=== PATIENT | female | born 1960 | race Caucasian/White ===

== ENCOUNTER 2017-10-12 07:35 | Inpatient (IN) | payer MEDICARE, OTHER ==
[2017-10-12] MEDS: morphine 4 MG/ML VIAL IV ×2 (08:27→12:02)
[2017-10-12] MEDS: ONDANSETRON 4 MG INJ IV ×3 (08:28→13:53)
[2017-10-12] MEDS: SODIUM CHLORIDE 0.9% 1L BAG IV* ×2 (08:28→11:31)
[2017-10-12 09:14] LABS: ADD MAN DIFF? NO
[2017-10-12 09:24] LABS: BASOPHILS % 0.3 % (0.0-2.0); EOSINOPHILS % 0.3 % (0.0-7.0); HEMATOCRIT 37.2 % (37.0-47.0); HEMOGLOBIN 12.5 g/dl (12.0-16.0); LYMPHOCYTES # 0.9 10^3/ul (0.8-2.9); LYMPHOCYTES % 13.2 % (15.0-51.0); MEAN CORPUSCULAR HEMOGLOBIN 31.6 pg (29.0-33.0); MEAN CORPUSCULAR HGB CONC 33.6 g/dl (32.0-37.0); MEAN CORPUSCULAR VOLUME 93.9 fl (82.0-101.0); MEAN PLATELET VOLUME 11.2 fl (7.4-10.4); MONOCYTE # 1.3 10^3/ul (0.3-0.9); MONOCYTES % 18.3 % (0.0-11.0); NEUTROPHIL # 4.8 10^3/ul (1.6-7.5); NEUTROPHILS % 67.6 % (39.0-77.0); PLATELET COUNT 207 10^3/UL (140-415); RED BLOOD COUNT 3.96 10^6/ul (4.20-5.40); RED CELL DISTRIBUTION WIDTH 13.5 % (11.5-14.5)
[2017-10-12 09:37] LABS: INR 1.02; PROTIME 13.5 Sec (11.9-14.9); PT RATIO 1.1
[2017-10-12 09:38] LABS: PARTIAL THROMBOPLASTIN TIME 30.1 Sec (25.0-35.0)
[2017-10-12 09:42] LABS: ALANINE AMINOTRANSFERASE 195 IU/L (13-69); ALBUMIN 3.7 g/dl (3.3-4.9); ALBUMIN/GLOBULIN RATIO 1.32; ALKALINE PHOSPHATASE 77 IU/L (42-121); AMYLASE 179 U/L (11-123); ANION GAP 13 (8-16); BILIRUBIN,INDIRECT 0.4 mg/dl (0-1.1); BILIRUBIN,TOTAL 0.4 mg/dl (0.2-1.3); BLOOD UREA NITROGEN 15 mg/dl (7-20); CARBON DIOXIDE 26 mmol/L (21-31); CHLORIDE 105 mmol/L (97-110); CREATININE 0.99 mg/dl (0.44-1.00); GLUCOSE 130 mg/dl (70-220); LIPASE 21 U/L (23-300); POTASSIUM 3.8 mmol/L (3.5-5.1); SODIUM 140 mmol/L (135-144); TOTAL PROTEIN 6.5 g/dl (6.1-8.1)
[2017-10-12 09:48] LABS: ASPARTATE AMINO TRANSFERASE 782 IU/L (15-46)
[2017-10-12 09:51] LABS: TROPONIN-I 0.015 ng/ml (0.00-0.12)
[2017-10-12] MEDS: ACETAMINOPHEN 500 MG TAB PO (11:43)
[2017-10-12] MEDS: IBUPROFEN 800 MG TAB PO (11:44)
[2017-10-12] MEDS: CEFEPIME 2GM/50 ML (PMX) 50 ML IVPB (11:44)
[2017-10-12] MEDS: VANCOMYCIN 1 GM (PMX) 250 ML IVPB (11:44)
[2017-10-12 11:59] LABS: ADD UMIC YES; UR AMORPHOUS CRYSTAL FEW /HPF (NONE SEEN); UR ASCORBIC ACID NEGATIVE (NEGATIVE); UR BACTERIA FEW /HPF (NONE SEEN); UR BILIRUBIN (Dip) NEGATIVE (NEGATIVE); UR BLOOD (Dip) 3+ mg/dL (NEGATIVE); UR BUDDING YEAST MODERATE /HPF (NONE SEEN); UR CLARITY SLIGHTLY CLOUDY (CLEAR); UR COLOR YELLOW (YELLOW); UR GLUCOSE (Dip) NEGATIVE (NEGATIVE); UR KETONES (Dip) NEGATIVE (NEGATIVE); UR LEUKOCYTE ESTERASE (Dip) NEGATIVE Leu/ul (NEGATIVE); UR NITRITE (Dip) NEGATIVE (NEGATIVE); UR RBC 1 /HPF (0-5); UR TOTAL PROTEIN (Dip) 1+ mg/dl (NEGATIVE); UR UROBILINOGEN (Dip) NEGATIVE (NEGATIVE); UR WBC 2 /HPF (0-5)
[2017-10-12] MEDS: HYDROmorphONE 1 MG/ML SYG IV (13:53)
[2017-10-12 18:09] LABS: LACTIC ACID 0.9 mmol/L (0.5-2.0)
[2017-10-12] MEDS ORDERED: SODIUM CHLORIDE 0.9% 1L BAG IV (19:30)
[2017-10-12] MEDS ORDERED: ZOLPIDEM 5 MG TAB PO (19:30)
[2017-10-12] MEDS ORDERED: NACL 0.9% 3 ML SYG IV ×2 (19:30)
[2017-10-12] MEDS ORDERED: ACETAMINOPHEN 325 MG TAB PO (19:30)
[2017-10-12] MEDS ORDERED: ONDANSETRON 4 MG TAB PO (19:30)
[2017-10-12 20:15] LABS: CREATINE KINASE 25336 IU/L (23-200)
[2017-10-12] MEDS: OXYCODONE/ACETAMINOPHEN (5/325) TAB PO (20:45)
[2017-10-12] MEDS: SOD CHLORIDE 0.9% 1,000 ML IV (20:46)
[2017-10-12] MEDS: GABAPENTIN 400 MG CAP PO (20:46)
[2017-10-12] MEDS: PRAMIPEXOLE 0.25 MG TAB PO (20:47)
[2017-10-12] MEDS: GABAPENTIN 300 MG CAP PO (20:48)
[2017-10-12] MEDS: LISINOPRIL 10 MG TAB PO (21:00)
[2017-10-12] MEDS: ALBUTEROL HFA 8 GM INHALER INH (21:08)
[2017-10-13] MEDS: OXYCODONE/ACETAMINOPHEN (5/325) TAB PO ×4 (04:05→20:42)
[2017-10-13] MEDS: ALBUTEROL HFA 8 GM INHALER INH ×4 (04:10→20:43)
[2017-10-13] MEDS: PANTOPRAZOLE (EC) 40 MG TAB PO (06:06)
[2017-10-13 07:11] LABS: ADD MAN DIFF? NO
[2017-10-13 07:17] LABS: WHITE BLOOD COUNT 6.6 10^3/ul (4.8-10.8)
[2017-10-13 07:17] LABS: BASOPHILS % 0.3 % (0.0-2.0); EOSINOPHILS # 0.1 10^3/ul (0.0-0.5); EOSINOPHILS % 1.2 % (0.0-7.0); HEMATOCRIT 31.8 % (37.0-47.0); HEMOGLOBIN 10.6 g/dl (12.0-16.0); LYMPHOCYTES # 1.3 10^3/ul (0.8-2.9); LYMPHOCYTES % 19.4 % (15.0-51.0); MEAN CORPUSCULAR HEMOGLOBIN 31.4 pg (29.0-33.0); MEAN CORPUSCULAR HGB CONC 33.3 g/dl (32.0-37.0); MEAN CORPUSCULAR VOLUME 94.1 fl (82.0-101.0); MONOCYTE # 1.1 10^3/ul (0.3-0.9); MONOCYTES % 15.9 % (0.0-11.0); NEUTROPHIL # 4.2 10^3/ul (1.6-7.5); NEUTROPHILS % 62.9 % (39.0-77.0); PLATELET COUNT 165 10^3/UL (140-415); RED BLOOD COUNT 3.38 10^6/ul (4.20-5.40); RED CELL DISTRIBUTION WIDTH 13.6 % (11.5-14.5)
[2017-10-13 07:46] LABS: ALANINE AMINOTRANSFERASE 156 IU/L (13-69); ALBUMIN 2.6 g/dl (3.3-4.9); ALBUMIN/GLOBULIN RATIO 0.92; ALKALINE PHOSPHATASE 57 IU/L (42-121); AMYLASE 114 U/L (11-123); ANION GAP 5 (8-16); ASPARTATE AMINO TRANSFERASE 515 IU/L (15-46); BILIRUBIN,INDIRECT 0.3 mg/dl (0-1.1); BILIRUBIN,TOTAL 0.3 mg/dl (0.2-1.3); BLOOD UREA NITROGEN 16 mg/dl (7-20); CALCIUM 7.9 mg/dl (8.4-10.2); CARBON DIOXIDE 28 mmol/L (21-31); CHLORIDE 111 mmol/L (97-110); CREATININE 0.84 mg/dl (0.44-1.00); GLUCOSE 125 mg/dl (70-220); LIPASE 10 U/L (23-300); MAGNESIUM 1.6 mg/dl (1.7-2.5); PHOSPHORUS 3.1 mg/dl (2.5-4.9); POTASSIUM 4.3 mmol/L (3.5-5.1); SODIUM 140 mmol/L (135-144); TOTAL PROTEIN 5.4 g/dl (6.1-8.1)
[2017-10-13 08:29] LABS: TROPONIN-I 0.021 ng/ml (0.00-0.12)
[2017-10-13 08:37] LABS: CK INDEX 0.1; CREATINE KINASE 15277 IU/L (23-200)
[2017-10-13] MEDS ORDERED: PATIENT'S OWN MEDICATION PO (09:00)
[2017-10-13] MEDS: ARIPIPRAZOLE 5 MG TAB PO (09:49)
[2017-10-13] MEDS: GABAPENTIN 300 MG CAP PO ×3 (09:49→20:42)
[2017-10-13] MEDS: CITALOPRAM 20 MG TAB PO (09:49)
[2017-10-13] MEDS: LAMOTRIGINE 100 MG TAB PO (09:49)
[2017-10-13] MEDS: BUPROPION (XL) 150 MG TAB PO (09:50)
[2017-10-13] MEDS: LISINOPRIL 20 MG TAB PO (09:50)
[2017-10-13] MEDS: MAGNESIUM OXIDE 400 MG TAB PO (14:02)
[2017-10-13] MEDS: traMADol 50 MG TAB PO (14:06)
[2017-10-13] MEDS: SOD CHLORIDE 0.9% 1,000 ML IV (15:30)
[2017-10-13] MEDS: PRAMIPEXOLE 0.25 MG TAB PO (20:42)
[2017-10-13] MEDS: traZODone 100 MG TAB PO (20:42)
[2017-10-13] MEDS: INFLUENZA VIRUS VACCINE 0.5 ML SYG IM* (20:44)
[2017-10-14] MEDS: SOD CHLORIDE 0.9% 1,000 ML IV (00:59)
[2017-10-14] MEDS: ALBUTEROL HFA 8 GM INHALER INH ×4 (02:39→20:00)
[2017-10-14] MEDS: PANTOPRAZOLE (EC) 40 MG TAB PO (04:28)
[2017-10-14] MEDS: OXYCODONE/ACETAMINOPHEN (5/325) TAB PO ×3 (04:28→16:52)
[2017-10-14 06:04] LABS: ADD MAN DIFF? NO
[2017-10-14 06:11] LABS: WHITE BLOOD COUNT 6.3 10^3/ul (4.8-10.8)
[2017-10-14 06:11] LABS: BASOPHILS % 0.5 % (0.0-2.0); EOSINOPHILS # 0.1 10^3/ul (0.0-0.5); EOSINOPHILS % 1.6 % (0.0-7.0); HEMATOCRIT 32.4 % (37.0-47.0); HEMOGLOBIN 10.8 g/dl (12.0-16.0); LYMPHOCYTES # 1.2 10^3/ul (0.8-2.9); LYMPHOCYTES % 18.2 % (15.0-51.0); MEAN CORPUSCULAR HEMOGLOBIN 31.1 pg (29.0-33.0); MEAN CORPUSCULAR HGB CONC 33.3 g/dl (32.0-37.0); MEAN CORPUSCULAR VOLUME 93.4 fl (82.0-101.0); MEAN PLATELET VOLUME 10.8 fl (7.4-10.4); MONOCYTE # 0.8 10^3/ul (0.3-0.9); NEUTROPHIL # 4.2 10^3/ul (1.6-7.5); NEUTROPHILS % 66.4 % (39.0-77.0); PLATELET COUNT 170 10^3/UL (140-415); RED BLOOD COUNT 3.47 10^6/ul (4.20-5.40); RED CELL DISTRIBUTION WIDTH 13.6 % (11.5-14.5)
[2017-10-14 07:21] LABS: ALANINE AMINOTRANSFERASE 156 IU/L (13-69); ALBUMIN/GLOBULIN RATIO 1.11; ALKALINE PHOSPHATASE 70 IU/L (42-121); ANION GAP 7 (8-16); ASPARTATE AMINO TRANSFERASE 384 IU/L (15-46); BILIRUBIN,INDIRECT 0.3 mg/dl (0-1.1); BILIRUBIN,TOTAL 0.3 mg/dl (0.2-1.3); BLOOD UREA NITROGEN 9 mg/dl (7-20); CALCIUM 8.1 mg/dl (8.4-10.2); CARBON DIOXIDE 27 mmol/L (21-31); CHLORIDE 110 mmol/L (97-110); CREATININE 0.73 mg/dl (0.44-1.00); GLUCOSE 100 mg/dl (70-220); POTASSIUM 4.3 mmol/L (3.5-5.1); SODIUM 140 mmol/L (135-144); TOTAL PROTEIN 5.7 g/dl (6.1-8.1)
[2017-10-14] MEDS: LAMOTRIGINE 100 MG TAB PO (08:42)
[2017-10-14] MEDS: MAGNESIUM OXIDE 400 MG TAB PO (08:43)
[2017-10-14] MEDS: LISINOPRIL 20 MG TAB PO (08:43)
[2017-10-14] MEDS: GABAPENTIN 300 MG CAP PO ×3 (08:43→20:44)
[2017-10-14] MEDS: BUPROPION (XL) 150 MG TAB PO (08:43)
[2017-10-14] MEDS: CITALOPRAM 20 MG TAB PO (08:44)
[2017-10-14] MEDS: ARIPIPRAZOLE 5 MG TAB PO (08:44)
[2017-10-14] MEDS: traZODone 100 MG TAB PO (20:44)
[2017-10-14] MEDS: PRAMIPEXOLE 0.25 MG TAB PO (20:44)
[2017-10-15] MEDS: OXYCODONE/ACETAMINOPHEN (5/325) TAB PO ×4 (00:59→20:36)
[2017-10-15] MEDS: ALBUTEROL HFA 8 GM INHALER INH ×4 (02:00→20:29)
[2017-10-15] MEDS: PANTOPRAZOLE (EC) 40 MG TAB PO (06:10)
[2017-10-15] MEDS: traMADol 50 MG TAB PO (07:18)
[2017-10-15] MEDS: LISINOPRIL 20 MG TAB PO (07:46)
[2017-10-15] MEDS: GABAPENTIN 300 MG CAP PO ×3 (07:46→20:29)
[2017-10-15] MEDS: MAGNESIUM OXIDE 400 MG TAB PO (07:46)
[2017-10-15] MEDS: BUPROPION (XL) 150 MG TAB PO (07:46)
[2017-10-15] MEDS: ARIPIPRAZOLE 5 MG TAB PO (07:47)
[2017-10-15] MEDS: CITALOPRAM 20 MG TAB PO (07:47)
[2017-10-15] MEDS: SOD CHLORIDE 0.9% 1,000 ML IV (07:47)
[2017-10-15] MEDS: LAMOTRIGINE 100 MG TAB PO (08:10)
[2017-10-15] MEDS: ENOXAPARIN 40 MG/0.4 ML SYG SC (09:01)
[2017-10-15] MEDS: traZODone 100 MG TAB PO (20:29)
[2017-10-15] MEDS: PRAMIPEXOLE 0.25 MG TAB PO (20:29)
[2017-10-16] MEDS: ALBUTEROL HFA 8 GM INHALER INH ×3 (02:55→12:23)
[2017-10-16] MEDS: PANTOPRAZOLE (EC) 40 MG TAB PO (05:14)
[2017-10-16] MEDS: OXYCODONE/ACETAMINOPHEN (5/325) TAB PO (05:15)
[2017-10-16 07:41] LABS: ADD MAN DIFF? NO
[2017-10-16 07:46] LABS: BASOPHILS % 0.5 % (0.0-2.0); EOSINOPHILS # 0.2 10^3/ul (0.0-0.5); EOSINOPHILS % 4.3 % (0.0-7.0); HEMATOCRIT 32.1 % (37.0-47.0); LYMPHOCYTES # 1.2 10^3/ul (0.8-2.9); LYMPHOCYTES % 28.4 % (15.0-51.0); MEAN CORPUSCULAR HEMOGLOBIN 32.1 pg (29.0-33.0); MEAN CORPUSCULAR HGB CONC 34.3 g/dl (32.0-37.0); MEAN CORPUSCULAR VOLUME 93.6 fl (82.0-101.0); MEAN PLATELET VOLUME 10.6 fl (7.4-10.4); MONOCYTE # 0.5 10^3/ul (0.3-0.9); MONOCYTES % 12.5 % (0.0-11.0); NEUTROPHIL # 2.3 10^3/ul (1.6-7.5); NEUTROPHILS % 54.1 % (39.0-77.0); PLATELET COUNT 226 10^3/UL (140-415); RED BLOOD COUNT 3.43 10^6/ul (4.20-5.40); RED CELL DISTRIBUTION WIDTH 13.4 % (11.5-14.5)
[2017-10-16 07:46] LABS: WHITE BLOOD COUNT 4.2 10^3/ul (4.8-10.8)
[2017-10-16 08:12] LABS: PHOSPHORUS 3.5 mg/dl (2.5-4.9)
[2017-10-16 08:12] LABS: MAGNESIUM 1.8 mg/dl (1.7-2.5)
[2017-10-16] MEDS: GABAPENTIN 300 MG CAP PO ×2 (08:17→12:23)
[2017-10-16] MEDS: MAGNESIUM OXIDE 400 MG TAB PO (08:17)
[2017-10-16] MEDS: DOCUSATE SODIUM 100 MG CAP PO (08:17)
[2017-10-16] MEDS: BUPROPION (XL) 150 MG TAB PO (08:17)
[2017-10-16] MEDS: ARIPIPRAZOLE 5 MG TAB PO (08:17)
[2017-10-16] MEDS: LISINOPRIL 20 MG TAB PO (08:18)
[2017-10-16] MEDS: CITALOPRAM 20 MG TAB PO (08:18)
[2017-10-16 09:39] LABS: ALANINE AMINOTRANSFERASE 119 IU/L (13-69); ALBUMIN 2.9 g/dl (3.3-4.9); ALBUMIN/GLOBULIN RATIO 1.07; ALKALINE PHOSPHATASE 58 IU/L (42-121); ANION GAP 6 (8-16); ASPARTATE AMINO TRANSFERASE 175 IU/L (15-46); BILIRUBIN,INDIRECT 0.3 mg/dl (0-1.1); BILIRUBIN,TOTAL 0.3 mg/dl (0.2-1.3); BLOOD UREA NITROGEN 11 mg/dl (7-20); CALCIUM 8.5 mg/dl (8.4-10.2); CARBON DIOXIDE 29 mmol/L (21-31); CHLORIDE 109 mmol/L (97-110); CREATININE 0.73 mg/dl (0.44-1.00); GLUCOSE 94 mg/dl (70-220); POTASSIUM 4.4 mmol/L (3.5-5.1); SODIUM 140 mmol/L (135-144); TOTAL PROTEIN 5.6 g/dl (6.1-8.1)
[2017-10-16] MEDS: LAMOTRIGINE 100 MG TAB PO (10:23)
== END 2017-10-16 13:51 | disposition home or self-care (01) | DRG 914 ==
LOC: E/R 07:35 → MS4 14:22
DX: S76.002A Unspecified injury of muscle, fascia and tendon of left hip, initial encounter (principal); M62.82 Rhabdomyolysis; S09.90XA Unspecified injury of head, initial encounter; S00.03XA Contusion of scalp, initial encounter; S13.9XXA Sprain of joints and ligaments of unspecified parts of neck, initial encounter; I10 Essential (primary) hypertension; M25.552 Pain in left hip; G80.9 Cerebral palsy, unspecified; F32.9 Major depressive disorder, single episode, unspecified; E78.5 Hyperlipidemia, unspecified; R32 Unspecified urinary incontinence; R50.9 Fever, unspecified; W01.0XXA Fall on same level from slipping, tripping and stumbling without subsequent striking against object, initial encounter; Z96.651 Presence of right artificial knee joint; Z98.84 Bariatric surgery status
CPT/HCPCS: 70450; 71045; 72125; 73510; 73560; 80053; 81001; 82150; 82550; 82553; 82962; 83605; 83690; 83735; 84100; 84484; 85025; 85610; 85730; 87040; 87086; 87400; 90686; 93005; 96374; 96375; 97163; 99285-25

== ENCOUNTER 2018-06-26 11:32 | Emergency (ER) | payer MEDICARE, OTHER ==
[2018-06-26] MEDS: OXYCODONE/ACETAMINOPHEN (5/325) TAB PO (12:43)
== END 2018-06-26 14:51 | disposition home or self-care (01) ==
LOC: FTE 11:32
DX: S80.12XA Contusion of left lower leg, initial encounter (principal); S02.2XXA Fracture of nasal bones, initial encounter for closed fracture; I10 Essential (primary) hypertension; J45.909 Unspecified asthma, uncomplicated; E66.9 Obesity, unspecified; V00.811A Fall from moving wheelchair (powered), initial encounter; Y92.410 Unspecified street and highway as the place of occurrence of the external cause; Z96.653 Presence of artificial knee joint, bilateral
CPT/HCPCS: 70450; 70486; 73590; 99284-25

== ENCOUNTER 2019-03-26 13:55 | Emergency (ER) | payer MEDICARE, OTHER ==
[2019-03-26 15:10] LABS: ADD MAN DIFF? NO
[2019-03-26 15:12] LABS: BASOPHILS % 0.4 % (0.0-2.0); EOSINOPHILS # 0.4 10^3/ul (0.0-0.5); EOSINOPHILS % 3.5 % (0.0-7.0); HEMATOCRIT 35.9 % (37.0-47.0); LYMPHOCYTES # 1.8 10^3/ul (0.8-2.9); LYMPHOCYTES % 17.3 % (15.0-51.0); MEAN CORPUSCULAR HEMOGLOBIN 32.2 pg (29.0-33.0); MEAN CORPUSCULAR HGB CONC 33.4 g/dl (32.0-37.0); MEAN CORPUSCULAR VOLUME 96.2 fl (82.0-101.0); MEAN PLATELET VOLUME 9.8 fl (7.4-10.4); MONOCYTE # 0.8 10^3/ul (0.3-0.9); MONOCYTES % 7.3 % (0.0-11.0); NEUTROPHIL # 7.4 10^3/ul (1.6-7.5); NEUTROPHILS % 71.1 % (39.0-77.0); PLATELET COUNT 205 10^3/UL (140-415); RED BLOOD COUNT 3.73 10^6/ul (4.20-5.40); RED CELL DISTRIBUTION WIDTH 12.3 % (11.5-14.5)
[2019-03-26 15:12] LABS: WHITE BLOOD COUNT 10.3 10^3/ul (4.8-10.8)
[2019-03-26 15:29] LABS: ALANINE AMINOTRANSFERASE 36 IU/L (13-69); ALBUMIN 4.1 g/dl (3.3-4.9); ALBUMIN/GLOBULIN RATIO 1.41; ALKALINE PHOSPHATASE 63 IU/L (42-121); ANION GAP 8 (5-13); ASPARTATE AMINO TRANSFERASE 38 IU/L (15-46); BILIRUBIN,INDIRECT 0.4 mg/dl (0-1.1); BILIRUBIN,TOTAL 0.4 mg/dl (0.2-1.3); BLOOD UREA NITROGEN 13 mg/dl (7-20); CALCIUM 9.3 mg/dl (8.4-10.2); CARBON DIOXIDE 28 mmol/L (21-31); CHLORIDE 105 mmol/L (97-110); CREATININE 0.83 mg/dl (0.44-1.00); Estimated GFR > 60 mL/min (>60); GLUCOSE 100 mg/dl (70-220); LIPASE 45 U/L (23-300); POTASSIUM 4.2 mmol/L (3.5-5.1); SODIUM 141 mmol/L (135-144)
[2019-03-26 15:31] LABS: INR 0.87; PROTIME 11.9 Sec (11.9-14.9); PT RATIO 0.9
[2019-03-26 15:32] LABS: PARTIAL THROMBOPLASTIN TIME 27.2 Sec (23.0-35.0)
[2019-03-26] MEDS: SOD CHLORIDE 0.9% 500 ML IV (15:49)
[2019-03-26] MEDS: KETOROLAC 15 MG INJ IV (15:53)
[2019-03-26] MEDS: OXYCODONE/ACETAMINOPHEN (5/325) TAB PO (16:37)
== END 2019-03-26 16:48 | disposition home or self-care (01) ==
LOC: E/R 16:48
DX: S05.12XA Contusion of eyeball and orbital tissues, left eye, initial encounter (principal); E66.9 Obesity, unspecified; I10 Essential (primary) hypertension; J45.909 Unspecified asthma, uncomplicated; S83.91XA Sprain of unspecified site of right knee, initial encounter; W14.XXXA Fall from tree, initial encounter; Y92.9 Unspecified place or not applicable; Z96.653 Presence of artificial knee joint, bilateral
CPT/HCPCS: 36415; 70450; 71045; 72170; 73562; 73590; 80053; 83690; 85025; 85610; 85730; 93971; 96374; 99285-25